=== PATIENT | male | born 1955 | race Two or more races ===

== ENCOUNTER 2018-04-18 19:02 | Inpatient (IN) | payer OTHER ==
[2018-04-18] MEDS: INSULIN ASPART [NOVOLOG] 3 ML PEN SC (21:00)
[2018-04-18] MEDS ORDERED: NITROGLYCERIN (SL) 0.4 MG TAB SL (21:00)
[2018-04-18] MEDS: ACCU-CHEK XX (21:00)
[2018-04-18] MEDS ORDERED: GLUCOSE GEL 15 GRAM TUBE PO ×2 (22:00)
[2018-04-18] MEDS ORDERED: GLUCAGON 1 MG INJ IM (22:00)
[2018-04-18] MEDS ORDERED: GLUCOSE GEL 15 GRAM TUBE BUCCAL (22:00)
[2018-04-18] MEDS ORDERED: DEXTROSE 50% 50 ML SYRINGE IV ×2 (22:00)
[2018-04-18] MEDS: GABAPENTIN 300 MG CAP PO (22:35)
[2018-04-18] MEDS: LISINOPRIL 20 MG TAB PO (22:35)
[2018-04-18] MEDS: TAMSULOSIN (SR) 0.4 MG CAP PO (22:35)
[2018-04-18 22:44] LABS: CHOL/HDL RATIO 6.4 RATIO; HDL CHOLESTEROL 43 mg/dl (30-78); LDL CHOLESTEROL,CALCULATED 182 mg/dl; TRIGLYCERIDES 267 mg/dl (0-149)
[2018-04-18 22:44] LABS: CHOLESTEROL 278 mg/dl (100-200)
[2018-04-19] MEDS: morphine 2 MG INJ IV ×2 (00:44→22:21)
[2018-04-19 01:07] LABS: TROPONIN-I 0.018 ng/ml (0.000-0.120)
[2018-04-19] MEDS: PANTOPRAZOLE (EC) 40 MG TAB PO (05:18)
[2018-04-19] MEDS: ACCU-CHEK XX ×4 (06:10→20:41)
[2018-04-19 06:35] LABS: TROPONIN-I 0.027 ng/ml (0.000-0.120)
[2018-04-19] MEDS: LINAGLIPTIN 5 MG TABLET PO (08:13)
[2018-04-19] MEDS: ASPIRIN (EC) 81 MG TAB PO (08:13)
[2018-04-19] MEDS: LISINOPRIL 20 MG TAB PO ×2 (08:14→20:33)
[2018-04-19] MEDS: METOPROLOL 100 MG TAB PO (08:14)
[2018-04-19] MEDS: CLOPIDOGREL 75 MG TAB PO (08:15)
[2018-04-19] MEDS: GABAPENTIN 300 MG CAP PO ×2 (08:15→20:32)
[2018-04-19] MEDS: INSULIN ASPART [NOVOLOG] 3 ML PEN SC ×4 (08:16→20:32)
[2018-04-19 12:54] LABS: TROPONIN-I < 0.012 ng/ml (0.000-0.120)
[2018-04-19] MEDS: ENOXAPARIN 40 MG/0.4 ML SYG SC (13:17)
[2018-04-19 19:08] LABS: CHOLESTEROL 279 mg/dl (100-200)
[2018-04-19 19:08] LABS: CHOL/HDL RATIO 6.4 RATIO; HDL CHOLESTEROL 43 mg/dl (30-78); LDL CHOLESTEROL,CALCULATED 178 mg/dl; TRIGLYCERIDES 288 mg/dl (0-149)
[2018-04-19 19:20] LABS: TROPONIN-I 0.012 ng/ml (0.000-0.120)
[2018-04-19 19:33] LABS: B-TYPE NATRIURETIC PEPTIDE 332 PG/ML (0-125)
[2018-04-19] MEDS: ATORVASTATIN 20 MG TAB PO (20:32)
[2018-04-19] MEDS: TAMSULOSIN (SR) 0.4 MG CAP PO (20:33)
[2018-04-19] MEDS: INSULIN GLARGINE [LANTus] (100 UNITS/ML) SYG SC (20:41)
[2018-04-19 22:17] LABS: HEMOGLOBIN A1C 8.3 % (0-5.9)
[2018-04-20 01:14] LABS: TROPONIN-I 0.015 ng/ml (0.000-0.120)
[2018-04-20 05:35] LABS: ADD MAN DIFF? NO; BASOPHILS % 0.5 % (0.0-2.0); EOSINOPHILS # 0.1 10^3/ul (0.0-0.5); EOSINOPHILS % 1.7 % (0.0-7.0); HEMATOCRIT 37.2 % (42.0-52.0); HEMOGLOBIN 12.2 g/dl (14.0-18.0); LYMPHOCYTES % 37.9 % (15.0-51.0); MEAN CORPUSCULAR HEMOGLOBIN 28.1 pg (29.0-33.0); MEAN CORPUSCULAR HGB CONC 32.8 g/dl (32.0-37.0); MEAN CORPUSCULAR VOLUME 85.7 fl (82.0-101.0); MEAN PLATELET VOLUME 10.5 fl (7.4-10.4); MONOCYTE # 0.6 10^3/ul (0.3-0.9); MONOCYTES % 7.5 % (0.0-11.0); NEUTROPHIL # 4.2 10^3/ul (1.6-7.5); PLATELET COUNT 236 10^3/UL (140-415); RED BLOOD COUNT 4.34 10^6/ul (4.70-6.10); RED CELL DISTRIBUTION WIDTH 12.7 % (11.5-14.5)
[2018-04-20] MEDS: PANTOPRAZOLE (EC) 40 MG TAB PO (05:55)
[2018-04-20 06:06] LABS: HEMOGLOBIN A1C 8.1 % (0-5.9)
[2018-04-20 06:36] LABS: ANION GAP 14 (8-16); BLOOD UREA NITROGEN 26 mg/dl (7-20); CALCIUM 9.1 mg/dl (8.4-10.2); CARBON DIOXIDE 27 mmol/L (21-31); CHLORIDE 104 mmol/L (97-110); GLUCOSE 129 mg/dl (70-220); POTASSIUM 4.5 mmol/L (3.5-5.1); SODIUM 140 mmol/L (135-144); URIC ACID 6.6 mg/dl (3.1-7.9)
[2018-04-20 06:37] LABS: TROPONIN-I 0.016 ng/ml (0.000-0.120)
[2018-04-20] MEDS: ACCU-CHEK XX ×4 (06:59→20:49)
[2018-04-20] MEDS: GABAPENTIN 300 MG CAP PO ×3 (08:11→20:30)
[2018-04-20] MEDS: LINAGLIPTIN 5 MG TABLET PO (08:11)
[2018-04-20] MEDS: ASPIRIN (EC) 81 MG TAB PO (08:11)
[2018-04-20] MEDS: METOPROLOL 100 MG TAB PO (08:12)
[2018-04-20] MEDS: LISINOPRIL 20 MG TAB PO ×3 (08:12→20:49)
[2018-04-20] MEDS: CLOPIDOGREL 75 MG TAB PO (08:12)
[2018-04-20] MEDS: INSULIN ASPART [NOVOLOG] 3 ML PEN SC ×4 (08:18→20:33)
[2018-04-20] MEDS: ENOXAPARIN 40 MG/0.4 ML SYG SC (08:19)
[2018-04-20 13:02] LABS: TROPONIN-I < 0.012 ng/ml (0.000-0.120)
[2018-04-20] MEDS: ATORVASTATIN 20 MG TAB PO (20:29)
[2018-04-20] MEDS: TAMSULOSIN (SR) 0.4 MG CAP PO (20:30)
[2018-04-20] MEDS: INSULIN GLARGINE [LANTus] (100 UNITS/ML) SYG SC (20:44)
[2018-04-21] MEDS: morphine 2 MG INJ IV (00:19)
[2018-04-21 05:43] LABS: ADD MAN DIFF? NO
[2018-04-21 05:57] LABS: BASOPHILS % 0.6 % (0.0-2.0); EOSINOPHILS # 0.2 10^3/ul (0.0-0.5); EOSINOPHILS % 2.4 % (0.0-7.0); HEMATOCRIT 35.6 % (42.0-52.0); LYMPHOCYTES # 2.7 10^3/ul (0.8-2.9); LYMPHOCYTES % 38.1 % (15.0-51.0); MEAN CORPUSCULAR HEMOGLOBIN 28.8 pg (29.0-33.0); MEAN CORPUSCULAR HGB CONC 33.7 g/dl (32.0-37.0); MEAN CORPUSCULAR VOLUME 85.6 fl (82.0-101.0); MEAN PLATELET VOLUME 10.5 fl (7.4-10.4); MONOCYTE # 0.5 10^3/ul (0.3-0.9); MONOCYTES % 7.5 % (0.0-11.0); NEUTROPHIL # 3.6 10^3/ul (1.6-7.5); NEUTROPHILS % 50.8 % (39.0-77.0); PLATELET COUNT 216 10^3/UL (140-415); RED BLOOD COUNT 4.16 10^6/ul (4.70-6.10); RED CELL DISTRIBUTION WIDTH 12.9 % (11.5-14.5)
[2018-04-21 06:45] LABS: ANION GAP 12 (8-16); BLOOD UREA NITROGEN 37 mg/dl (7-20); CALCIUM 8.7 mg/dl (8.4-10.2); CARBON DIOXIDE 25 mmol/L (21-31); CHLORIDE 105 mmol/L (97-110); CREATININE 1.06 mg/dl (0.61-1.24); GLUCOSE 207 mg/dl (70-220); POTASSIUM 4.6 mmol/L (3.5-5.1); SODIUM 137 mmol/L (135-144)
[2018-04-21] MEDS: PANTOPRAZOLE (EC) 40 MG TAB PO (07:10)
[2018-04-21] MEDS: ACCU-CHEK XX ×2 (07:40→11:35)
[2018-04-21] MEDS: INSULIN ASPART [NOVOLOG] 3 ML PEN SC ×2 (08:57→11:38)
[2018-04-21] MEDS: METOPROLOL 100 MG TAB PO (08:58)
[2018-04-21] MEDS: ENOXAPARIN 40 MG/0.4 ML SYG SC (08:58)
[2018-04-21] MEDS: ASPIRIN (EC) 81 MG TAB PO (08:59)
[2018-04-21] MEDS: GABAPENTIN 300 MG CAP PO ×2 (08:59→13:33)
[2018-04-21] MEDS: CLOPIDOGREL 75 MG TAB PO (08:59)
[2018-04-21] MEDS: LISINOPRIL 20 MG TAB PO (08:59)
[2018-04-21] MEDS: LINAGLIPTIN 5 MG TABLET PO (08:59)
[2018-04-21] MEDS ORDERED: morphine LIQ (10 MG/5 ML) CUP PO (15:30)
== END 2018-04-21 17:24 | disposition home or self-care (01) | DRG 313 ==
LOC: 6WM 19:02
PROVIDERS: Internal Medicine Nephrology
DX: R07.89 Other chest pain (principal); Z68.41 Body mass index [BMI] 40.0-44.9, adult; E66.9 Obesity, unspecified; I10 Essential (primary) hypertension; E78.5 Hyperlipidemia, unspecified; E11.9 Type 2 diabetes mellitus without complications; G89.29 Other chronic pain; K43.9 Ventral hernia without obstruction or gangrene; N40.0 Benign prostatic hyperplasia without lower urinary tract symptoms; F17.200 Nicotine dependence, unspecified, uncomplicated
CPT/HCPCS: 80048; 80061; 82962; 83036; 83880; 84484; 84560; 85025; 93005; 93306; 93970

== ENCOUNTER 2018-07-30 19:52 | Inpatient (IN) | payer OTHER ==
[2018-07-30] MEDS: ONDANSETRON 4 MG INJ IV ×2 (20:27→21:50)
[2018-07-30] MEDS: HYDROmorphONE 1 MG/ML SYG IV (20:27)
[2018-07-30 20:28] LABS: ADD MAN DIFF? NO
[2018-07-30 20:30] LABS: BASOPHILS % 0.3 % (0.0-2.0); EOSINOPHILS # 0.3 10^3/ul (0.0-0.5); HEMATOCRIT 34.8 % (42.0-52.0); HEMOGLOBIN 11.4 g/dl (14.0-18.0); LYMPHOCYTES # 2.9 10^3/ul (0.8-2.9); LYMPHOCYTES % 22.2 % (15.0-51.0); MEAN CORPUSCULAR HGB CONC 32.8 g/dl (32.0-37.0); MEAN CORPUSCULAR VOLUME 82.5 fl (82.0-101.0); MEAN PLATELET VOLUME 10.2 fl (7.4-10.4); MONOCYTE # 0.7 10^3/ul (0.3-0.9); NEUTROPHIL # 9.2 10^3/ul (1.6-7.5); NEUTROPHILS % 69.9 % (39.0-77.0); PLATELET COUNT 262 10^3/UL (140-415); RED BLOOD COUNT 4.22 10^6/ul (4.70-6.10); RED CELL DISTRIBUTION WIDTH 12.9 % (11.5-14.5)
[2018-07-30 20:30] LABS: WHITE BLOOD COUNT 13.1 10^3/ul (4.8-10.8)
[2018-07-30 20:48] LABS: ALANINE AMINOTRANSFERASE 24 IU/L (13-69); ALBUMIN 4.3 g/dl (3.3-4.9); ALBUMIN/GLOBULIN RATIO 1.26; ALKALINE PHOSPHATASE 109 IU/L (42-121); ANION GAP 11 (5-13); ASPARTATE AMINO TRANSFERASE 17 IU/L (15-46); BLOOD UREA NITROGEN 22 mg/dl (7-20); CALCIUM 9.6 mg/dl (8.4-10.2); CARBON DIOXIDE 28 mmol/L (21-31); CHLORIDE 100 mmol/L (97-110); CREATININE 0.96 mg/dl (0.61-1.24); Estimated GFR > 60 mL/min (>60); GLUCOSE 303 mg/dl (70-220); LIPASE 158 U/L (23-300); POTASSIUM 4.1 mmol/L (3.5-5.1); SODIUM 139 mmol/L (135-144); TOTAL PROTEIN 7.7 g/dl (6.1-8.1)
[2018-07-30 20:54] LABS: INR 0.87; PROTIME 11.9 Sec (11.9-14.9); PT RATIO 0.9
[2018-07-30 20:55] LABS: PARTIAL THROMBOPLASTIN TIME 23.8 Sec (23.0-35.0)
[2018-07-30 21:00] LABS: TROPONIN-I < 0.012 ng/ml (0.000-0.120)
[2018-07-30 21:36] LABS: ADD UMIC YES; UR ASCORBIC ACID NEGATIVE (NEGATIVE); UR BACTERIA FEW /HPF (NONE SEEN); UR BILIRUBIN (Dip) NEGATIVE (NEGATIVE); UR BLOOD (Dip) NEGATIVE (NEGATIVE); UR CLARITY CLEAR (CLEAR); UR COLOR YELLOW (YELLOW); UR GLUCOSE (Dip) 3+ mg/dL (NEGATIVE); UR KETONES (Dip) TRACE mg/dL (NEGATIVE); UR LEUKOCYTE ESTERASE (Dip) NEGATIVE Leu/ul (NEGATIVE); UR NITRITE (Dip) NEGATIVE (NEGATIVE); UR RBC 1 /HPF (0-5); UR SPECIFIC GRAVITY (Dip) 1.027 (1.003-1.030); UR TOTAL PROTEIN (Dip) 2+ mg/dl (NEGATIVE); UR UROBILINOGEN (Dip) NEGATIVE (NEGATIVE); UR WBC 0 /HPF (0-5)
[2018-07-30] MEDS: HYDROmorphONE 2 MG/ML SYG IV (21:51)
[2018-07-30] MEDS ORDERED: ONDANSETRON 4 MG INJ IV ×2 (22:00→23:30)
[2018-07-30] MEDS ORDERED: ACETAMINOPHEN 325 MG TAB PO ×2 (22:00→23:30)
[2018-07-30] MEDS: AMPICILLIN/SULB 3 GM/NS (PMX) 100 ML IVPB (22:14)
[2018-07-30] MEDS: METOPROLOL 50 MG TAB PO (23:24)
[2018-07-30] MEDS ORDERED: ACETAMINOPHEN 650 MG SUPP PR (23:30)
[2018-07-30] MEDS ORDERED: NACL 0.9% 3 ML SYG IV (23:30)
[2018-07-30] MEDS ORDERED: DOCUSATE SODIUM 100 MG CAP PO (23:30)
[2018-07-30] MEDS ORDERED: MAGNESIUM HYDROXIDE 30ML CUP PO (23:30)
[2018-07-30] MEDS ORDERED: morphine 2 MG INJ IV (23:30)
[2018-07-30] MEDS ORDERED: NITROGLYCERIN (SL) 0.4 MG TAB SL (23:30)
[2018-07-30] MEDS ORDERED: BISACODYL (EC) 5 MG TAB PO (23:30)
[2018-07-31] MEDS: DEXTROSE 5%-0.45% NACL 1,000 ML IV ×3 (00:54→19:50)
[2018-07-31] MEDS: morphine 4 MG/ML VIAL IV ×3 (00:54→22:50)
[2018-07-31] MEDS: HYDROCODONE/APAP (5/325) TAB PO ×2 (01:48→08:28)
[2018-07-31] MEDS: hydrALAzine 20 MG INJ IV (02:59)
[2018-07-31 05:37] LABS: HEMOGLOBIN A1C 7.7 % (0-5.9)
[2018-07-31] MEDS: PANTOPRAZOLE 40 MG INJ IV (06:00)
[2018-07-31] MEDS: METOPROLOL 50 MG TAB PO ×2 (08:20→21:00)
[2018-07-31] MEDS: LISINOPRIL 5 MG TAB PO (08:21)
[2018-07-31] MEDS: CEFTRIAXONE 1 GM/50 ML (PMX) 50 ML IVPB (08:21)
[2018-07-31] MEDS: FUROSEMIDE 40 MG TAB PO (08:21)
[2018-07-31] MEDS ORDERED: DEXTROSE 50% 50 ML SYRINGE IV ×2 (08:30)
[2018-07-31] MEDS ORDERED: GLUCOSE GEL 15 GRAM TUBE BUCCAL (08:30)
[2018-07-31] MEDS ORDERED: GLUCAGON 1 MG INJ IM (08:30)
[2018-07-31] MEDS ORDERED: GLUCOSE GEL 15 GRAM TUBE PO ×2 (08:30)
[2018-07-31] MEDS: INSULIN ASPART [NOVOLOG] 3 ML PEN SC ×4 (10:33→21:02)
[2018-07-31] MEDS: metroNIDAZOLE 500 MG/NS (PMX) 100 ML IVPB ×2 (16:08→22:38)
[2018-07-31] MEDS: TAMSULOSIN (SR) 0.4 MG CAP PO (20:51)
[2018-07-31] MEDS: ATORVASTATIN 40 MG TAB PO (20:51)
[2018-08-01] MEDS: INSULIN ASPART [NOVOLOG] 3 ML PEN SC ×3 (01:00→08:41)
[2018-08-01] MEDS: ACCU-CHEK XX (02:00)
[2018-08-01 05:04] LABS: ADD MAN DIFF? NO
[2018-08-01 05:09] LABS: BASOPHILS % 0.4 % (0.0-2.0); EOSINOPHILS # 0.2 10^3/ul (0.0-0.5); HEMATOCRIT 32.5 % (42.0-52.0); HEMOGLOBIN 10.9 g/dl (14.0-18.0); LYMPHOCYTES # 2.2 10^3/ul (0.8-2.9); LYMPHOCYTES % 28.6 % (15.0-51.0); MEAN CORPUSCULAR HEMOGLOBIN 27.1 pg (29.0-33.0); MEAN CORPUSCULAR HGB CONC 33.5 g/dl (32.0-37.0); MEAN CORPUSCULAR VOLUME 80.8 fl (82.0-101.0); MEAN PLATELET VOLUME 10.2 fl (7.4-10.4); MONOCYTE # 0.6 10^3/ul (0.3-0.9); MONOCYTES % 7.3 % (0.0-11.0); NEUTROPHIL # 4.7 10^3/ul (1.6-7.5); NEUTROPHILS % 60.3 % (39.0-77.0); PLATELET COUNT 228 10^3/UL (140-415); RED BLOOD COUNT 4.02 10^6/ul (4.70-6.10); RED CELL DISTRIBUTION WIDTH 13.2 % (11.5-14.5)
[2018-08-01 05:09] LABS: WHITE BLOOD COUNT 7.8 10^3/ul (4.8-10.8)
[2018-08-01 05:39] LABS: ALANINE AMINOTRANSFERASE 21 IU/L (13-69); ALBUMIN 3.5 g/dl (3.3-4.9); ALBUMIN/GLOBULIN RATIO 1.06; ALKALINE PHOSPHATASE 98 IU/L (42-121); ANION GAP 6 (5-13); ASPARTATE AMINO TRANSFERASE 23 IU/L (15-46); BILIRUBIN,INDIRECT 0.3 mg/dl (0-1.1); BILIRUBIN,TOTAL 0.3 mg/dl (0.2-1.3); BLOOD UREA NITROGEN 20 mg/dl (7-20); CARBON DIOXIDE 32 mmol/L (21-31); CHLORIDE 101 mmol/L (97-110); CREATININE 0.93 mg/dl (0.61-1.24); Estimated GFR > 60 mL/min (>60); GLUCOSE 192 mg/dl (70-220); POTASSIUM 3.6 mmol/L (3.5-5.1); SODIUM 139 mmol/L (135-144); TOTAL PROTEIN 6.8 g/dl (6.1-8.1)
[2018-08-01] MEDS: PANTOPRAZOLE 40 MG INJ IV (06:00)
[2018-08-01] MEDS: metroNIDAZOLE 500 MG/NS (PMX) 100 ML IVPB ×2 (06:26→14:14)
[2018-08-01] MEDS: CEFTRIAXONE 1 GM/50 ML (PMX) 50 ML IVPB (08:31)
[2018-08-01] MEDS: METOPROLOL 50 MG TAB PO (08:33)
[2018-08-01] MEDS: LISINOPRIL 5 MG TAB PO (08:33)
[2018-08-01] MEDS: FUROSEMIDE 40 MG TAB PO (08:33)
[2018-08-01] MEDS: Insulin NOVOLOG SS MODERATE Algorithm (SS with meals and bedtime) SC (12:58)
[2018-08-01] MEDS ORDERED: INSULIN ASPART [NOVOLOG] 3 ML PEN SC (17:25)
== END 2018-08-01 15:35 | disposition home or self-care (01) | DRG 446 ==
LOC: MS1 21:50 → E/R 19:52
DX: K81.0 Acute cholecystitis (principal); E11.9 Type 2 diabetes mellitus without complications; I10 Essential (primary) hypertension; Z72.0 Tobacco use; E78.5 Hyperlipidemia, unspecified; Z95.1 Presence of aortocoronary bypass graft; N40.0 Benign prostatic hyperplasia without lower urinary tract symptoms; Z95.2 Presence of prosthetic heart valve; E66.9 Obesity, unspecified; Z68.37 Body mass index [BMI] 37.0-37.9, adult
CPT/HCPCS: 36415; 71045; 74176; 76705; 78226; 80053; 81001; 82962; 83036; 83690; 84484; 85025; 85610; 85730; 93005; 96374; 96375; 96376; 99285-25